=== PATIENT | female | born 1960 | race Caucasian/White ===

== ENCOUNTER → 2019-01-13 | Outpatient (CLI) | payer OTHER ==
--- NOTE | 2019-01-13 16:45 | RAD ---
Right knee 2 views. HISTORY: Knee pain, disability determination 2 views were taken of the right knee. There is no fracture or joint effusion or osseous abnormality. Joint spaces are well-maintained. IMPRESSION: 1. Negative right knee. Electronically signed by: Nicolas Hernandez MD (01/13/2019 4:43 PM) [facility]
== END | disposition home or self-care (01) ==
LOC: RAD 10:28
PROVIDERS: ATTEND Surgery
DX: M25.561 Pain in right knee (principal)
CPT/HCPCS: 73560